=== PATIENT | male | born 1955 | race American Indian/Alaskan Native ===

== ENCOUNTER 2021-03-20 12:21 | Day surgery (SDC) | payer MEDICARE ==
[~2021-03-20 12:21] MED LIST: LACTATED RINGERS 1,000 ML IV SCH
[2021-03-20] MEDS ORDERED: HEPARIN 5,000 UNIT/1 ML VIAL SUB-Q NR (13:15)
[2021-03-20] MEDS ORDERED: ceFAZolin/STERILE WATER 2 GM/20 ML SYRINGE IV NR (13:15)
[2021-03-20] MEDS ORDERED: fentaNYL 100 MCG/2 ML INJ IV PRN (13:29)
[2021-03-20] MEDS ORDERED: ONDANSETRON 4 MG/2 ML INJ IV PRN (13:29)
--- NOTE | 2021-03-20 13:29 | Anesthesia Day of Surgery ---
Anesthesia Day of Surgery - Day of Surgery Patient Examined: Yes Patient H&P Reviewed: Yes Patient is NPO: Yes
--- NOTE | 2021-03-20 13:29 | Anesthesia Consultation ---
Anesthesia Consult and Med Hx Date of service: 03/20/21 - Airway Anesthetic Teeth Evaluation: Good ROM Head & Neck: Adequate Mental/Hyoid Distance: Adequate Mallampati Class: Class III Intubation Access Assessment: Possibly Difficult - Pre-Operative Health Status ASA Pre-Surgery Classification: ASA3 Proposed Anesthetic Plan: General - Pulmonary Hx Smoking: No Hx Respiratory Symptoms: No Hx Sleep Apnea: Yes (no CPAP) - Cardiovascular System Hx Hypertension: No Hx Heart Attack/AMI: No Hx Percutaneous Transluminal Coronary Angioplasty (PTCA): No - Central Nervous System CVA: No - Endocrine Hx Renal Disease: Yes ("being monitored" by PCP) Hx End Stage Renal Disease: No Hx Non-Insulin Dependent Diabetes: Yes Hx Thyroid Disease: No - Other Systems Hx Obesity: Yes (BMI 37) - Additional Comments Anesthesia Medical History Comments: No hx anesthetic complications.
[2021-03-20] MEDS ORDERED: LIDOCAINE MPF (2%) 20 MG/1 ML VIAL 5 ML ONE (14:00)
[2021-03-20] MEDS ORDERED: BACTERIOSTATIC SODIUM CHLORIDE 0.9% 30 ML VIAL INFILTRATI ONE (14:02)
[2021-03-20] MEDS ORDERED: BUPIVACAINE/PF (0.5%) 5 MG/1 ML 30 ML VIAL INFILTRATI ONE ×2 (16:19→17:07)
[2021-03-20] MEDS ORDERED: propofoL 200 MG/20 ML VIAL IV ONE ×3 (16:44→17:51)
[2021-03-20] MEDS ORDERED: MIDAZOLAM 2 MG/2 ML INJ ONE (16:46)
[2021-03-20] MEDS ORDERED: LIDOCAINE 1%/EPINEPHRINE 1:100,000 VIAL (20 ML) INFILTRATI ONE ×2 (17:08→17:09)
[2021-03-20] MEDS ORDERED: SODIUM CHLORIDE 0.9% IRR 1,500 ML BOTTLE IR ONE (17:23)
[2021-03-20] MEDS ORDERED: fentaNYL 100 MCG/2 ML INJ ONE (17:46)
[2021-03-20] MEDS ORDERED: NEOMY 3.5 MG/BACIT 400 UNITS/POLY B 5000 UNITS/GM OINT PACKET TP ONE (17:53)
[2021-03-20] MEDS ORDERED: NEOMY 3.5 MG/BACIT 400 UNITS/POLY B 5000 UNITS OINT 15 GM TP ONE (17:56)
--- NOTE | 2021-03-20 18:20 | Procedure Note ---
Date of procedure: 03/20/21 Pre-op diagnosis: Right forehead mass, 2.5 cm Post-op diagnosis: same (Possible BCC) Procedure: Excision of right forehead mass (3.2 cm with margins) Description of procedure: Pt was placed supine on the OR table. MAC anesthesia was administered. Scalp and forehead were prepped and draped. Skin and SQ tissue about the mass were infiltrated with 8 ml of 0.25% Marcaine. The lesion was then excised with 4 mm margins about the lesion with sharp and Bovie dissection. The deep margin was carried down to the galea aponeurotica. The 6 o'clock margin was marked with a 2-0 silk suture. The deep tissue was approximated with interrupted sutures of 3-0 Vicryl and the skin was approximated with a running suture of 5-0 Nylon. A sterile gauze was applied to the incision which was secured with a Tegaderm. Pt tolerated the procedure well and was taken to PACU in stable condition. Anesthesia: MAC Surgeon: BEVERLEY CASTLE Estimated blood loss: 50-100ml Pathology: list (Right forehead mass with suture at 6 o'clock) Specimen disposition: to lab Condition: stable Disposition: PACU
--- NOTE | 2021-03-20 18:47 | Post Anesthesia Evaluation ---
- Post Anesthesia Evaluation Patient Participated: Yes Airway Patent: Yes Stable Respiratory Function: Yes Nausea/Vomiting: No Temp > 96.8F: Yes Pain Manageable: Yes Adequeate Hydration: Yes Anesthesia Complications: No
[2021-03-20 19:53] VITALS: BP 132/78
== END 2021-03-20 12:22 | disposition home or self-care (01) ==
LOC: OR 12:21
PROVIDERS: ATTEND Surgery
DX: R22.0 Localized swelling, mass and lump, head (principal); C43.4 Malignant melanoma of scalp and neck; E66.9 Obesity, unspecified; E11.9 Type 2 diabetes mellitus without complications; G47.30 Sleep apnea, unspecified; F32.9 Major depressive disorder, single episode, unspecified; Z87.891 Personal history of nicotine dependence; Z79.899 Other long term (current) drug therapy; Z98.890 Other specified postprocedural states
CPT/HCPCS: 11444; 82962; 88307; A6250; J0690; J1644; J2250; J2704; J3010; J7120

== ENCOUNTER 2021-08-25 18:00 | Emergency (ER) | payer MEDICARE ==
[2021-08-25 21:47] VITALS: BP 132/78
--- NOTE | 2021-08-26 02:40 | Emergency Department Report ---
ED General Adult HPI - General Chief complaint: Medical Clearance Stated complaint: MEDS REFILLS Time Seen by Provider: 08/26/21 02:35 Source: patient Mode of arrival: Ambulatory Limitations: No Limitations - History of Present Illness Initial comments: Patient six 6-year-old male with history of type 2 diabetes controlled with Metformin 1000 mg p.o. twice daily. Patient states he went to [facility] however at [facility] is no longer taking his insurance. Patient requesting refill for Metformin p.o. And referral to a new primary care doctor. Patient denies symptoms at this time Accu-Chek is 187. There is been no fevers no chills no nausea no vomiting. No lightheadedness no dizziness no chest pain or shortness of breath. Patient denies any other symptoms at this time. Severity scale (0 -10): 0 - Related Data Home Medications Medication Instructions Recorded Confirmed Last Taken Metformin HCl [metFORMIN] 1,000 mg PO BID 03/19/21 03/19/21 03/19/21 buPROPion [Wellbutrin] 300 mg PO DAILY 03/19/21 03/19/21 03/19/21 glipiZIDE [Glucotrol] 10 mg PO BID 03/19/21 03/19/21 03/19/21 Previous Rx's Medication Instructions Recorded Last Taken Type oxyCODONE /ACETAMINOPHEN [Percocet 1 tab PO Q4HR PRN #40 tab 03/20/21 Unknown Rx 5/325] Metformin HCl [metFORMIN] 1,000 mg PO BID #180 08/26/21 Unknown Rx Allergies Allergy/AdvReac Type Severity Reaction Status Date / Time No Known Allergies Allergy Verified 03/19/21 15:56 ED Review of Systems ROS: Stated complaint: MEDS REFILLS Other details as noted in HPI Constitutional: denies: chills, fever Eyes: denies: eye pain, eye discharge, vision change ENT: denies: ear pain, throat pain Respiratory: denies: cough, shortness of breath, wheezing Cardiovascular: denies: chest pain, palpitations Endocrine: no symptoms reported Gastrointestinal: denies: abdominal pain, nausea, diarrhea Genitourinary: denies: urgency, dysuria Musculoskeletal: denies: back pain, joint swelling, arthralgia Skin: denies: rash, lesions Neurological: denies: headache, weakness, paresthesias Psychiatric: denies: anxiety, depression Hematological/Lymphatic: denies: easy bleeding, easy bruising ED Past Medical Hx - Past Medical History Previous Medical History?: Yes Hx Hypertension: No Hx Heart Attack/AMI: No Hx Diabetes: Yes Hx Renal Disease: Yes ("being monitored" by PCP) - Surgical History Past Surgical History?: Yes Additional Surgical History: Hernia Surgery - Social History Smoking Status: Former Smoker - Medications Home Medications: Home Medications Medication Instructions Recorded Confirmed Last Taken Type Metformin HCl [metFORMIN] 1,000 mg PO BID 03/19/21 03/19/21 03/19/21 History buPROPion [Wellbutrin] 300 mg PO DAILY 03/19/21 03/19/21 03/19/21 History glipiZIDE [Glucotrol] 10 mg PO BID 03/19/21 03/19/21 03/19/21 History oxyCODONE /ACETAMINOPHEN [Percocet 1 tab PO Q4HR PRN #40 tab 03/20/21 Unknown Rx 5/325] Metformin HCl [metFORMIN] 1,000 mg PO BID #180 08/26/21 Unknown Rx ED Physical Exam - General Limitations: No Limitations General appearance: alert, in no apparent distress - Head Head exam: Present: atraumatic, normocephalic - Eye Eye exam: Present: normal appearance - ENT ENT exam: Present: mucous membranes moist - Neck Neck exam: Present: normal inspection - Respiratory Respiratory exam: Present: normal lung sounds bilaterally. Absent: respiratory distress - Cardiovascular Cardiovascular Exam: Present: regular rate, normal rhythm. Absent: systolic murmur, diastolic murmur, rubs, gallop - GI/Abdominal GI/Abdominal exam: Present: soft, normal bowel sounds - Rectal Rectal exam: Present: deferred - Extremities Exam Extremities exam: Present: normal inspection - Back Exam Back exam: Present: normal inspection - Neurological Exam Neurological exam: Present: alert, oriented X3 - Psychiatric Psychiatric exam: Present: normal affect, normal mood - Skin Skin exam: Present: warm, dry, intact, normal color. Absent: rash ED Course Vital Signs 08/25/21 21:46 Temperature 99.0 F Pulse Rate 84 Respiratory 20 Rate Blood Pressure 132/78 [Right] O2 Sat by Pulse 98 Oximetry ED Medical Decision Making - Medical Decision Making Accu-Chek 187, will refill Metformin as requested. Patient given referral to primary care doctor. Patient is currently alert oriented x3 amatory with steady gait with no acute distress. Patient DC'd home in stable condition at this time. Critical care attestation.: If time is entered above; I have spent that time in minutes in the direct care of this critically ill patient, excluding procedure time. ED Disposition Clinical Impression: Medication refill Disposition: 01 HOME / SELF CARE / HOMELESS Is pt being admited?: No Does the pt Need Aspirin: No Condition: Stable Instructions: Metformin tablets Additional Instructions: Take all medications as prescribed, follow-up with your doctor in 2 to 3 days. Return to emergency department should symptoms worsen. Prescriptions: Metformin HCl [metFORMIN] 1,000 mg PO BID #180 Referrals: ROLANDO ACUNA MD [Staff Physician] - 3-5 Days Forms: Work/School Release Form(ED) Time of Disposition: 02:40
== END 2021-08-26 03:10 | disposition home or self-care (01) ==
LOC: ED 18:00
DX: E11.9 Type 2 diabetes mellitus without complications (principal); Z76.0 Encounter for issue of repeat prescription; Z79.899 Other long term (current) drug therapy; Z98.890 Other specified postprocedural states; Z87.891 Personal history of nicotine dependence
CPT/HCPCS: 99282